=== PATIENT | female | born 1935 | race Caucasian/White ===

== ENCOUNTER 2016-10-12 16:14 | Emergency (ER) | payer MEDICARE, OTHER ==
[2016-10-12] MEDS ORDERED: HYDROcodone/ACETAMIN 5-325 MG* 1 TAB PO ONE (17:12)
[2016-10-12 17:48] VITALS: BP 156/90
--- NOTE | 2016-11-17 07:35 | UC ---
Jennifer Menendez Janilya, scribed for Ileana Krause DO on 10/12/16 at 1650 . Head Injury HPI - HPI Summary HPI Summary: A 81 y/o female came in to [facility] presenting w/ a sudden onset of head injury that occurred today at approximately 1400. Pt was walking up stairs and was carrying heavy bags of groceries when the weight pulled her backwards and caused her to fall. In effect, pt injured her head and right shoulder and right arm. Pt was not able to get up and stayed in the place where she fell for a few hours until a family member came back home. Pt was not dizzy or lightheaded when the injury occurred. Pt denies losing consciousness, BENITEZ at this moment, confusion, bright light. Pt reports increased feeling of instability now, fatigue, baseline ringing in the ears. PMHx CVA 3 years ago. - History Of Current Complaint Chief Complaint: UCHeadInjury Stated Complaint: HEAD & SHOULDER INJURIES FROM FALL Time Seen by Provider: 10/12/16 16:39 Hx Obtained From: Patient Onset/Duration: Sudden Onset, Lasting Hours, Still Present Severity Currently: Moderate Severity Initially: Moderate Pain Intensity: 6 Character: Dull Aggravating Factor(s): Nothing Alleviating Factor(s): Nothing Associated Signs And Symptoms: Negative: LOC (Time In Secs./Mins/Hrs), LOC Duration Unknown, Confusion, Neck Pain, Nausea, Vomiting - Allergies/Home Medications Allergies/Adverse Reactions: Allergies Allergy/AdvReac Type Severity Reaction Status Date / Time Colchicine Allergy Severe Rash Verified 10/12/16 16:30 Hydrochlorothiazide Allergy Intermediate Rash Verified 10/12/16 16:30 Home Medications: Home Medications Bb-12 La* 1,500 mg PO 10/12/16 [History] Benazepril HCl [Lotensin] 40 mg PO 10/12/16 [History] Colchicine* [Colcrys*] 0.6 mg PO DAILY 10/12/16 [History Confirmed 10/12/16] Escitalopram Oxalate [Lexapro] 20 mg PO 10/12/16 [History] Triamcinolone 0.5% CREAM(NF) [Triamcinolone 0.5% CREAM*] 10/12/16 [History] PMH/Surg Hx/FS Hx/Imm Hx Previously Healthy: Yes Endocrine History Of: Reports: Thyroid Disease Denies: Diabetes Cardiovascular History Of: Reports: Cardiac Disorders - Carotid artery stenosis , Hypertension Denies: Pacemaker/ICD, Congestive Heart Failure, Deep Vein Thrombosis Respiratory History Of: Denies: COPD, Asthma, Pneumonia, Pulmonary Embolism GI/ History Of: Reports: Gall Bladder Disease - Gall bladder removed Denies: Gastroesophageal Reflux, Ulcer, Gastrointestinal Bleed, Kidney Stones , Renal Disease Neurological History Of: Reports: CVA Denies: TIA, Dementia, Seizures, Migraine Psychological History Of: Reports: Depression Denies: Anxiety, Bipolar Disorder, Schizophrenia Cancer History Of: Denies: Lung Cancer Other History Of: Negative For: Anticoagulant Therapy - Surgical History Surgical History: Yes Surgery Procedure, Year, and Place: OVARIES REMOVED 1990. HYSTERECTOMY 1992. RIGHT BREAST CYST REMOVED AT AGE 17. Gall bladder removed 1990 - Family History Known Family History: Positive: Cardiac Disease - father, Hypertension - father , Other - cancer - mother - Social History Occupation: Retired Lives: With Family Alcohol Use: Daily Alcohol Amount: 1-2 drinks per day Substance Use Type: None Smoking Status (MU): Current Every Day Smoker Type: Cigarettes Amount Used/How Often: 1/2 PPD Cessation Counseling: Patient Advised to Stop - Immunization History Most Recent Influenza Vaccination: 2007 Most Recent Tetanus Shot: unk Most Recent Pneumonia Vaccination: 2011 Review of Systems Constitutional: Fatigue, Other - feeling unstable now Skin: Negative Eyes: Negative ENT: Other - baseline ringing in ears Respiratory: Negative Cardiovascular: Negative Gastrointestinal: Negative Genitourinary: Negative Motor: Negative Neurovascular: Negative Musculoskeletal: Arthralgia - right shoulder and right arm pain, Myalgia - right shoulder and right arm pain Neurological: Negative Psychological: Negative All Other Systems Reviewed And Are Negative: Yes Physical Exam Triage Information Reviewed: Yes Appearance: Well-Appearing, No Pain Distress, Well-Nourished Vital Signs: Initial Vital Signs Temp 99.9 F 10/12/16 16:25 Pulse 85 10/12/16 16:25 Resp 18 10/12/16 16:25 BP 183/104 10/12/16 16:25 Pulse Ox 99 10/12/16 16:25 Vital Signs Reviewed: Yes Eyes: Positive: Conjunctiva Clear. Negative: Discharge ENT: Positive: Hearing grossly normal. Negative: Muffled/hoarse voice Neck exam: Normal Neck: Positive: Supple Respiratory: Positive: Lungs clear, Normal breath sounds, No respiratory distress, No accessory muscle use Cardiovascular: Positive: RRR, No Murmur Musculoskeletal: Positive: Other: - Tenderness in the tip of 4th finger, the anatomical snuffbox, the radial head, and shaft of humerus. No skull depression appreciated. Neurological Exam: Normal - A&Ox3, CN II-XII INTACT, SENSORY MOTOR INTACT, REFLEXES INTACT, NO CEREBELLAR SIGNS, FACIAL SYMMETRY, NEGATIVE RHOMBERG, NEGATIVE GAIT Neurological: Positive: Alert, Muscle Tone Normal Psychological Exam: Normal Psychological: Positive: Age Appropriate Behavior Skin Exam: Normal Skin: Positive: Other - warm, dry, normal color; small abrasion on palm of right hand along with bruising. Head Injury Course/Dx - Course Course Of Treatment: Pt and her granddaughter were told that pt should not walk w/o assistance due to pain medication that will make her more unsteady on her feet. - Differential Dx/Diagnosis Differential Diagnosis/HQI/PQRI: Concussion Without LOC, Intracranial Bleed, Other Provider Diagnoses: geriatric fall/head injury, concussion, upper ext injury Discharge - Discharge Plan Condition: Stable Disposition: AGAINST MEDICAL ADVICE Referrals: Yomaira Golden [Primary Care Provider] - The documentation as recorded by the Jennifer gibson Janilya accurately reflects the service I personally performed and the decisions made by , Ileana Krause DO.
== END 2016-10-12 17:30 | disposition left against medical advice (07) ==
LOC: UCEAST 16:14
DX: S06.0X0A Concussion without loss of consciousness, initial encounter (principal); S49.91XA Unspecified injury of right shoulder and upper arm, initial encounter; W19.XXXA Unspecified fall, initial encounter; Y93.89 Activity, other specified; Y92.009 Unspecified place in unspecified non-institutional (private) residence as the place of occurrence of the external cause; Z88.8 Allergy status to other drugs, medicaments and biological substances; I65.29 Occlusion and stenosis of unspecified carotid artery; I10 Essential (primary) hypertension; Z90.49 Acquired absence of other specified parts of digestive tract; F17.210 Nicotine dependence, cigarettes, uncomplicated
CPT/HCPCS: 99213; G0463

== ENCOUNTER 2016-10-12 17:50 | Emergency (ER) | payer MEDICARE ==
[2016-10-12] MEDS ORDERED: HYDROmorphone INJ* 1 MG/ML CARPUJECT SYRINGE IV ONE (18:41)
[2016-10-12] MEDS ORDERED: NS 0.9% 1000 ML* 1,000 ML IV ONE (18:41)
[2016-10-12] MEDS ORDERED: Ondansetron INJ* 2 MG/ML VIAL IV ONE (18:41)
[2016-10-12 18:47] LABS: Hematocrit 39 % (35-47); Mean Corpuscular HGB Conc 33 g/dl (31-36); Mean Corpuscular Hemoglobin 32 pg (27-31); Mean Corpuscular Volume 96 fL (80-97); Mean Platelet Volume 8 um3 (7.4-10.4); Red Blood Count 4.07 10^6/ul (4.0-5.4); Red Cell Distribution Width 14 % (10.5-15); White Blood Count 12.7 10^3/ul (3.5-10.8)
[2016-10-12 18:58] LABS: Albumin 4.1 g/dL (3.2-5.2); BUN/Creatinine Ratio 12.6 (8-20); C Reactive Protein 1.8 mg/L (< 5.00); Calcium 9.6 mg/dL (8.6-10.3); EGFR African American 40.2 (>60); EGFR Non-African American 31.2 (>60); Globulin 2.9 g/dL (2-4); Potassium 3.4 mmol/L (3.5-5.0); Total Bilirubin 0.9 mg/dL (0.2-1.0)
--- NOTE | 2016-10-12 19:24 | RAD ---
HISTORY: Right proximal humeral pain after fall COMPARISONS: None VIEWS: 3, Frontal internal rotation and external rotation views of the right humerus FINDINGS: BONE DENSITY: Normal. BONES: There is an angulated and comminuted fracture of the humeral head, including the greater tuberosity JOINTS: There is no arthropathy. ALIGNMENT: There is no dislocation. SOFT TISSUES: Unremarkable. OTHER FINDINGS: None. IMPRESSION: ANGULATED AND COMMINUTED FRACTURE OF THE RIGHT HUMERAL HEAD
--- NOTE | 2016-10-12 19:25 | RAD ---
HISTORY: Trauma, right wrist pain COMPARISONS: None VIEWS: 3, Frontal, lateral, and oblique views of the right wrist FINDINGS: BONE DENSITY: There is diffuse osteopenia. BONES: There is no displaced fracture. JOINTS: There is no arthropathy. ALIGNMENT: There is no dislocation. SOFT TISSUES: Unremarkable. OTHER FINDINGS: None. IMPRESSION: NO ACUTE OSSEOUS INJURY. IF SYMPTOMS PERSIST, RECOMMEND REPEAT IMAGING.
[2016-10-12] MEDS ORDERED: oxyCODONE/Acetamin 5/325 MG* TAB PO ONE (21:00)
[2016-10-12 21:12] VITALS: BP 186/91
--- NOTE | 2016-10-12 23:21 | ED ---
Roxy Menendez Anna, scribed for Steve Conde MD on 10/12/16 at 1847 . Adult Trauma - HPI Summary HPI Summary: Patient is an 81 y/o female coming to [facility] after a fall that occurred at 1230 this afternoon. The patient was carrying heavy bags of groceries up the patio stairs when she slipped and fell backwards. She hit the right side of her head and landed on her right arm. She denies LOC. She was not ambulatory at the scene and was on the ground outside for two hours before she was found. She was seen at [facility] before being transferred here. Her hips are weak at baseline. She had Vicodin for the pain, which alleviated the symptoms somewhat. - History of Current Complaint Chief Complaint: EDExposureHeatCold Stated Complaint: FALL, RIGHT SHOULDER RIGHT ARM COMMING FROM [facility] Time Seen by Provider: 10/12/16 18:31 Hx Obtained From: Patient Pain Intensity: 4 - Allergy/Home Medications Allergies/Adverse Reactions: Allergies Allergy/AdvReac Type Severity Reaction Status Date / Time Colchicine Allergy Severe Rash Verified 10/12/16 16:30 Hydrochlorothiazide Allergy Intermediate Rash Verified 10/12/16 16:30 PMH/Surg Hx/FS Hx/Imm Hx Endocrine/Hematology History: Reports: Hx Thyroid Disease, Hx Anemia Denies: Hx Anticoagulant Therapy, Hx Blood Disorders, Hx Blood Transfusions, Hx Bone Marrow Disease, Hx Diabetes, Hx Systemic Lupus Erythematosus, Hx Sickle Cell Disease, Hx Unexplained Bleeding Cardiovascular History: Reports: Hx Hypercholesterolemia, Hx Hypotension, Hx Hypertension, Other Cardiovascular Problems/Disorders - carotid stenosis Denies: Hx Aneurysm, Hx Angina, Hx Angioplasty, Hx Auto Implanted Cardiovert Defib, Hx Cardiac Arrest, Hx Cardiomegaly, Hx Congenital Heart Disease, Hx Congestive Heart Failure, Hx Coronary Artery Disease, Hx Deep Vein Thrombosis, Hx Pacemaker/ICD, Hx Peripheral Vascular Disease, Hx Rheumatic Fever, Hx Syncope , Hx Valvular Heart Disease Respiratory History: Reports: Hx Seasonal Allergies Denies: Hx Asthma, Hx Chronic Bronchitis, Hx Chronic Obstructive Pulmonary Disease (COPD), Hx Cystic Fibrosis, Hx Lung Cancer, Hx Pleural Effusion, Hx Pneumonia, Hx Pulmonary Edema, Hx Pulmonary Embolism, Hx Sleep Apnea GI History: Reports: Hx Gall Bladder Disease - Gall bladder removed, Hx Gastroesophageal Reflux Disease, Hx Irritable Bowel Denies: Hx Cirrhosis, Hx Crohn's Disease, Hx Diverticulosis, Hx Gastrointestinal Bleed, Hx Hiatal Hernia, Hx Jaundice, Hx Obstructive Bowel, Hx Ileostomy, Hx Pyloric Stenosis, Hx Ulcer History: Reports: Other Problems/Disorders - Pt reports proteinuria Denies: Hx Acute Renal Failure, Hx Benign Prostatic Hyperplasia, Hx Chronic Renal Failure, Hx Dialysis, Hx Kidney Infection, Hx Kidney Stones, Hx Renal Disease Musculoskeletal History: Reports: Hx Arthritis - left hip, Hx Gout, Hx Osteoporosis Denies: Hx Back Problems, Hx Bursitis, Hx Congenital Bone Abnormalities, Hx Fibromyalgia, Hx Orthopedic Injury, Hx Scoliosis, Hx Tendonitis, Other Musculoskeletal History Sensory History: Reports: Hx Contacts or Glasses, Hx Vision Problem, Hx Hearing Problem Denies: Hx Cataracts, Hx Eye Injury, Hx Eye Prosthesis, Hx Glaucoma, Hx Macular Degeneration, Hx Deafness, Hx Hearing Aid, Other Sensory Impairments Opthamlomology History: Reports: Hx Contacts or Glasses, Hx Vision Problem Denies: Hx Cataracts, Hx Eye Injury, Hx Eye Prosthesis, Hx Glaucoma, Hx Macular Degeneration, Other Sensory Impairments Neurological History: Denies: Hx Dementia, Hx Developmental Delay, Hx Headaches, Hx Migraine, Hx Seizures, Hx Spinal Cord Injury, Hx Transient Ischemic Attacks (TIA) Psychiatric History: Reports: Hx Depression Denies: Hx Anxiety, Hx Attention Deficit Hyperactivity Disorder, Hx Eating Disorder, Hx Panic Disorder, Hx Post Traumatic Stress Disorder, Hx Inpatient Treatment, Hx Community Mental Health Tx, Hx Schizophrenia, Hx Bipolar Disorder , Hx Suicide Attempt, Hx Substance Abuse, Other Psychiatric Issues/Disorders - Surgical History Surgery Procedure, Year, and Place: OVARIES REMOVED 1990. HYSTERECTOMY 1992. RIGHT BREAST CYST REMOVED AT AGE 17. Gall bladder removed 1990 Hx Anesthesia Reactions: No Infectious Disease History: Yes Infectious Disease History: Denies: Hx Clostridium Difficile, Hx Hepatitis, Hx Human Immunodeficiency Virus (HIV), Hx Shingles, Hx Tuberculosis, Traveled Outside the [place] in Last 30 Days - Family History Known Family History: Positive: Hypertension - Social History Occupation: Retired Lives: With Family Alcohol Use: Daily Alcohol Amount: 1-2 drinks per day Substance Use Type: Reports: None Smoking Status (MU): Current Every Day Smoker Type: Cigarettes Amount Used/How Often: 1/2 PPD Review of Systems Positive: Arthralgia Positive: Weakness - hips, baseline. Negative: Syncope All Other Systems Reviewed And Are Negative: Yes Physical Exam Triage Information Reviewed: Yes Vital Signs On Initial Exam: Initial Vitals Temp Pulse Resp BP Pulse Ox 99.4 F 112 18 168/93 100 10/12/16 18:12 10/12/16 18:12 10/12/16 18:12 10/12/16 18:12 10/12/16 18:12 Vital Signs Reviewed: Yes Appearance: Positive: Well-Appearing, No Pain Distress Skin: Positive: Warm, Skin Color Reflects Adequate Perfusion, Dry, Other - Small abrasions on thenar eminence of right hand. Head/Face: Positive: Other - Very mild cephalic tenderness Eyes: Positive: Normal ENT: Positive: Normal ENT inspection Neck: Positive: Supple, Nontender Respiratory/Lung Sounds: Positive: Clear to Auscultation, Breath Sounds Present Cardiovascular: Positive: RRR Abdomen Description: Positive: Nontender, Soft Bowel Sounds: Positive: Present Musculoskeletal: Positive: Other - Ecchymosis and tenderness on humerus anteriorly. Neurological: Positive: Normal Psychiatric: Positive: Affect/Mood Appropriate Diagnostics - Vital Signs Vital Signs Temp Pulse Resp BP Pulse Ox 10/12/16 18:12 99.4 F 112 18 168/93 100 - Laboratory Lab Results: Lab Results 10/12/16 10/12/16 Range/Units 18:35 18:35 WBC 12.7 H (3.5-10.8) 10^3/ul RBC 4.07 (4.0-5.4) 10^6/ul Hgb 13.0 (12.0-16.0) g/dl Hct 39 (35-47) % MCV 96 (80-97) fL MCH 32 H (27-31) pg MCHC 33 (31-36) g/dl RDW 14 (10.5-15) % Plt Count 240 (150-450) 10^3/ul MPV 8 (7.4-10.4) um3 Neut % (Auto) 88.1 H (38-83) % Lymph % (Auto) 6.2 L (25-47) % Bennett % (Auto) 4.9 (1-9) % Eos % (Auto) 0.1 (0-6) % Baso % (Auto) 0.7 (0-2) % Absolute Neuts (auto) 11.2 H (1.5-7.7) 10^3/ul Absolute Lymphs (auto) 0.8 L (1.0-4.8) 10^3/ul Absolute Monos (auto) 0.6 (0-0.8) 10^3/ul Absolute Eos (auto) 0 (0-0.6) 10^3/ul Absolute Basos (auto) 0.1 (0-0.2) 10^3/ul Absolute Nucleated RBC 0 10^3/ul Nucleated RBC % 0 Sodium 136 (133-145) mmol/L Potassium 3.4 L (3.5-5.0) mmol/L Chloride 99 L (101-111) mmol/L Carbon Dioxide 27 (22-32) mmol/L Anion Gap 10 (2-11) mmol/L BUN 20 (6-24) mg/dL Creatinine 1.59 H (0.51-0.95) mg/dL Est GFR ( Amer) 40.2 (>60) Est GFR (Non-Af Amer) 31.2 (>60) BUN/Creatinine Ratio 12.6 (8-20) Glucose 138 H (70-100) mg/dL Calcium 9.6 (8.6-10.3) mg/dL Total Bilirubin 0.90 (0.2-1.0) mg/dL AST 16 (13-39) U/L ALT 13 (7-52) U/L Alkaline Phosphatase 73 (34-104) U/L Total Creatine Kinase 207 (10-223) U/L C-Reactive Protein 1.80 (< 5.00) mg/L Total Protein 7.0 (6.4-8.9) g/dL Albumin 4.1 (3.2-5.2) g/dL Globulin 2.9 (2-4) g/dL Albumin/Globulin Ratio 1.4 (1-3) Result Diagrams: 10/12/16 18:35 10/12/16 18:35 Lab Statement: Any lab studies that have been ordered have been reviewed, and results considered in the medical decision making process. - Radiology Wrist XR Xray Interpretation: No Acute Changes Radiology Interpretation Completed By: Radiologist - IMPRESSION: NO ACUTE OSSEOUS INJURY. IF SYMPTOMS PERSIST, RECOMMEND REPEAT IMAGING. Humerus XR Xray Interpretation: Positive (See Comments) Radiology Interpretation Completed By: Radiologist - IMPRESSION: ANGULATED AND COMMINUTED FRACTURE OF THE RIGHT HUMERAL HEAD Adult Trauma Course/Dx - Course Assessment/Plan: Patient is an 81 y/o female coming to [facility] after a fall that occurred at 1230 this afternoon. The patient was carrying heavy bags of groceries up the patio stairs when she slipped and fell backwards. She hit the right side of her head and landed on her right arm. She denies LOC. She was not ambulatory at the scene and was on the ground outside for two hours before she was found. She was seen at [facility] before being transferred here. Her hips are weak at baseline. She had Vicodin for the pain, which alleviated the symptoms somewhat. Physical exam reveals ecchymosis and tenderness on humerus anteriorly , very mild cephalic tenderness, and small abrasions on thenar eminence of right hand. Labs reveal WBC of 12.7, and Creatinine of 1.59. Wrist XR was unremarkable. Humerus XR reveals angulated and comminuted fracture of the right humeral head. Patient will be discharged home with a prescription for Percocet. - Diagnoses Provider Diagnoses: Fx humeral neck Discharge - Discharge Plan Condition: Stable Disposition: HOME Prescriptions: oxyCODONE/Acetamin 5/325 MG* [Percocet 5/325 TAB*] 1 tab PO Q6H PRN #20 tab MDD 4 PRN Reason: Pain Patient Education Materials: Oxycodone/Acetaminophen (By mouth), Arm Fracture in Adults (ED) Referrals: Jessica Boston MD [Primary Care Provider] - Additional Instructions: Follow up with primary care physician within 48 hours. Return to the emergency department for changing or worsening symptoms. The documentation as recorded by the Roxy gibson Anna accurately reflects the service I personally performed and the decisions made by , Steve Conde MD.
== END 2016-10-12 21:12 | disposition home or self-care (01) ==
LOC: ED 17:50
DX: S42.291A Other displaced fracture of upper end of right humerus, initial encounter for closed fracture (principal); W10.9XXA Fall (on) (from) unspecified stairs and steps, initial encounter; Y93.89 Activity, other specified; Y92.9 Unspecified place or not applicable; S60.511A Abrasion of right hand, initial encounter; I10 Essential (primary) hypertension; E78.00 Pure hypercholesterolemia, unspecified; F17.210 Nicotine dependence, cigarettes, uncomplicated
CPT/HCPCS: 36415; 80053; 82550; 85025; 86140; 96360; 96374; 96375; 99283; A9270-GY; J1170; J2405

== ENCOUNTER 2017-02-04 15:15 | Inpatient (IN) | payer MEDICARE ==
[2017-02-04 16:03] LABS: Hematocrit 38 % (35-47); Mean Corpuscular HGB Conc 34 g/dl (31-36); Mean Corpuscular Hemoglobin 32 pg (27-31); Mean Corpuscular Volume 94 fL (80-97); Mean Platelet Volume 8 um3 (7.4-10.4); Red Blood Count 4.07 10^6/ul (4.0-5.4); Red Cell Distribution Width 14 % (10.5-15); White Blood Count 7.5 10^3/ul (3.5-10.8)
--- NOTE | 2017-02-04 16:10 | RAD ---
HISTORY: Ataxia COMPARISONS: Head CT dated July 13, 2012 TECHNIQUE: Multiple contiguous axial CT scans were obtained of the head without intravenous contrast. FINDINGS: HEMORRHAGE/INFARCT: There is no hemorrhage or acute infarct. MASSES/SHIFT: There is no mass or shift. EXTRA-AXIAL SPACES: There are no extra-axial fluid collections. SULCI AND VENTRICLES: The sulci and ventricles are normal in size and position for the patient's stated age. CEREBRUM: There is hypoattenuation of the periventricular and subcortical white matter. BRAINSTEM: There are no focal parenchymal abnormalities. CEREBELLUM: There are no focal parenchymal abnormalities. VESSELS: The vessels are grossly normal. PARANASAL SINUSES: The paranasal sinuses are clear. ORBITS: The orbits are unremarkable. BONES AND SOFT TISSUE: No bone or soft tissue abnormalities are noted. OTHER: None IMPRESSION: NO ACUTE INTRACRANIAL PATHOLOGY. CHRONIC SMALL VESSEL ISCHEMIC CHANGES.
[2017-02-04 16:25] LABS: Troponin I 0.08 ng/mL (<0.04)
[2017-02-04 17:16] LABS: ALT 13 U/L (7-52); AST 14 U/L (13-39); Albumin 3.9 g/dL (3.2-5.2); Alkaline Phosphatase 85 U/L (34-104); Anion Gap 11 mmol/L (2-11); Blood Urea Nitrogen 28 mg/dL (6-24); CO2 Carbon Dioxide 27 mmol/L (22-32); Calcium 8.9 mg/dL (8.6-10.3); Chloride 103 mmol/L (101-111); EGFR African American 38.5 (>60); EGFR Non-African American 29.9 (>60); Globulin 2.7 g/dL (2-4); Glucose 108 mg/dL (70-100); Potassium 3.4 mmol/L (3.5-5.0); Sodium 141 mmol/L (133-145); Total Protein 6.6 g/dL (6.4-8.9)
[2017-02-04 17:27] LABS: TSH (Thyroid Stimulating Horm) 2.53 mcIU/mL (0.34-5.60)
[2017-02-04] MEDS ORDERED: Acetaminophen TAB* 325 MG PO PRN (17:29)
[2017-02-04] MEDS ORDERED: Ondansetron INJ* 2 MG/ML VIAL IV PRN (17:29)
[2017-02-04] MEDS ORDERED: Potassium Chlor TAB* 20 MEQ TAB.ER PO ONE (17:32)
[2017-02-04] MEDS ORDERED: NS 0.9% 1000 ML* 1,000 ML IV SCH (17:45)
[2017-02-04 17:53] LABS: Magnesium 1.8 mg/dL (1.9-2.7)
[2017-02-04 17:54] LABS: Alcohol < 10 mg/dL (<10)
[2017-02-04 18:19] LABS: Vitamin B12 701 pg/mL (180-914)
[2017-02-04] MEDS: Thiamine TAB* 100 MG TAB PO SCH (18:33)
[2017-02-04] MEDS: Clopidogrel TAB* 75 MG PO SCH (18:34)
--- NOTE | 2017-02-04 19:05 | ED ---
Heather Menendez SooYoung, scribed for Steve Conde MD on 02/04/17 at 1538 . Neurological HPI - HPI Summary HPI Summary: An 81 y/o F LISA presents to ED with c/o LLE weakness onset around 0930 when pt stood up from her chair, she states having been seated for only a few minutes, and noticed no weakness prior to getting up. She describes her L leg as feeling heavy, off-balance, and noticed it dragging. Associated sx: diarrhea at 1100. Denies L arm pain, slurred speech, dysuria, nausea, cough. She states feeling OK otherwise. Pert PMHx: CVA three years ago. Sx during that episode included bilat LE weakness. She is R-hand dominant. Pt is medication compliant, and takes baby aspirin daily. - History of Current Complaint Chief Complaint: EDWeakness Stated Complaint: LT LEG WEAKNESS Time Seen by Provider: 02/04/17 15:21 Hx Obtained From: Patient Onset/Duration: Sudden Onset, Started hours ago, Still Present Timing: Constant Onset Severity: Moderate Current Severity: Moderate Character: Weak Associated Signs and Symptoms: Positive: Diarrhea. Negative: Pain - armL, Impaired Speech, Nausea/Vomiting - Allergy/Home Medications Allergies/Adverse Reactions: Allergies Allergy/AdvReac Type Severity Reaction Status Date / Time Colchicine Allergy Severe Rash Verified 10/12/16 16:30 Hydrochlorothiazide Allergy Intermediate Rash Verified 10/12/16 16:30 PMH/Surg Hx/FS Hx/Imm Hx Previously Healthy: No Endocrine/Hematology History: Reports: Hx Thyroid Disease, Hx Anemia Denies: Hx Anticoagulant Therapy, Hx Blood Disorders, Hx Blood Transfusions, Hx Bone Marrow Disease, Hx Diabetes, Hx Systemic Lupus Erythematosus, Hx Sickle Cell Disease, Hx Unexplained Bleeding Cardiovascular History: Reports: Hx Hypercholesterolemia, Hx Hypotension, Hx Hypertension, Other Cardiovascular Problems/Disorders - carotid stenosis Denies: Hx Aneurysm, Hx Angina, Hx Angioplasty, Hx Auto Implanted Cardiovert Defib, Hx Cardiac Arrest, Hx Cardiomegaly, Hx Congenital Heart Disease, Hx Congestive Heart Failure, Hx Coronary Artery Disease, Hx Deep Vein Thrombosis, Hx Pacemaker/ICD, Hx Peripheral Vascular Disease, Hx Rheumatic Fever, Hx Syncope , Hx Valvular Heart Disease Respiratory History: Reports: Hx Seasonal Allergies Denies: Hx Asthma, Hx Chronic Bronchitis, Hx Chronic Obstructive Pulmonary Disease (COPD), Hx Cystic Fibrosis, Hx Lung Cancer, Hx Pleural Effusion, Hx Pneumonia, Hx Pulmonary Edema, Hx Pulmonary Embolism, Hx Sleep Apnea GI History: Reports: Hx Gall Bladder Disease - Gall bladder removed, Hx Gastroesophageal Reflux Disease, Hx Irritable Bowel Denies: Hx Cirrhosis, Hx Crohn's Disease, Hx Diverticulosis, Hx Gastrointestinal Bleed, Hx Hiatal Hernia, Hx Jaundice, Hx Obstructive Bowel, Hx Ileostomy, Hx Pyloric Stenosis, Hx Ulcer History: Reports: Other Problems/Disorders - Pt reports proteinuria Denies: Hx Acute Renal Failure, Hx Benign Prostatic Hyperplasia, Hx Chronic Renal Failure, Hx Dialysis, Hx Kidney Infection, Hx Kidney Stones, Hx Renal Disease Musculoskeletal History: Reports: Hx Arthritis - left hip, Hx Gout, Hx Osteoporosis Denies: Hx Back Problems, Hx Bursitis, Hx Congenital Bone Abnormalities, Hx Fibromyalgia, Hx Orthopedic Injury, Hx Scoliosis, Hx Tendonitis, Other Musculoskeletal History Sensory History: Reports: Hx Contacts or Glasses, Hx Vision Problem, Hx Hearing Problem Denies: Hx Cataracts, Hx Eye Injury, Hx Eye Prosthesis, Hx Glaucoma, Hx Macular Degeneration, Hx Deafness, Hx Hearing Aid, Other Sensory Impairments Opthamlomology History: Reports: Hx Contacts or Glasses, Hx Vision Problem Denies: Hx Cataracts, Hx Eye Injury, Hx Eye Prosthesis, Hx Glaucoma, Hx Macular Degeneration, Other Sensory Impairments Neurological History: Denies: Hx Dementia, Hx Developmental Delay, Hx Headaches, Hx Migraine, Hx Seizures, Hx Spinal Cord Injury, Hx Transient Ischemic Attacks (TIA) Psychiatric History: Reports: Hx Depression Denies: Hx Anxiety, Hx Attention Deficit Hyperactivity Disorder, Hx Eating Disorder, Hx Panic Disorder, Hx Post Traumatic Stress Disorder, Hx Inpatient Treatment, Hx Community Mental Health Tx, Hx Schizophrenia, Hx Bipolar Disorder , Hx Suicide Attempt, Hx Substance Abuse, Other Psychiatric Issues/Disorders - Surgical History Surgery Procedure, Year, and Place: OVARIES REMOVED 1990. HYSTERECTOMY 1992. RIGHT BREAST CYST REMOVED AT AGE 17. Gall bladder removed 1990 Hx Anesthesia Reactions: No Infectious Disease History: Denies: Hx Clostridium Difficile, Hx Hepatitis, Hx Human Immunodeficiency Virus (HIV), Hx Shingles, Hx Tuberculosis, Traveled Outside the [place] in Last 30 Days - Family History Known Family History: Positive: Hypertension - Social History Occupation: Retired Lives: With Family Alcohol Use: Daily Alcohol Amount: 1-2 drinks per day Hx Substance Use: No Substance Use Type: Reports: None Hx Tobacco Use: Yes Smoking Status (MU): Current Every Day Smoker Type: Cigarettes Amount Used/How Often: 1/2 PPD Review of Systems Negative: Cough Positive: Diarrhea. Negative: Nausea Negative: dysuria Positive: Other - NEG: L arm pain Positive: Weakness. Negative: Slurred Speech All Other Systems Reviewed And Are Negative: Yes Physical Exam Triage Information Reviewed: Yes Vital Signs On Initial Exam: Initial Vitals Pulse Pulse Ox 65 95 02/04/17 15:26 02/04/17 15:26 Vital Signs Reviewed: Yes Appearance: Positive: Well-Appearing, No Pain Distress Skin: Positive: Warm, Skin Color Reflects Adequate Perfusion, Dry Head/Face: Positive: Normal Head/Face Inspection Eyes: Positive: Normal ENT: Positive: Normal ENT inspection Neck: Positive: Supple, Nontender Respiratory/Lung Sounds: Positive: Clear to Auscultation, Breath Sounds Present Cardiovascular: Positive: RRR Abdomen Description: Positive: Nontender, Soft Bowel Sounds: Positive: Present Musculoskeletal: Positive: Normal Neurological: Positive: Rhomberg. Negative: Pronator Drift Present - NO PRONATOR DRIFT, BUT LISTS TO THE LEFT Psychiatric: Positive: Normal, Affect/Mood Appropriate Diagnostics - Vital Signs Vital Signs Pulse Pulse Ox 02/04/17 15:26 65 95 - Laboratory Lab Results: Lab Results 02/04/17 02/04/17 02/04/17 Range/Units 15:50 15:50 15:50 WBC 7.5 (3.5-10.8) 10^3/ul RBC 4.07 (4.0-5.4) 10^6/ul Hgb 13.0 (12.0-16.0) g/dl Hct 38 (35-47) % MCV 94 (80-97) fL MCH 32 H (27-31) pg MCHC 34 (31-36) g/dl RDW 14 (10.5-15) % Plt Count 230 (150-450) 10^3/ul MPV 8 (7.4-10.4) um3 Neut % (Auto) 72.8 (38-83) % Lymph % (Auto) 17.9 L (25-47) % Story % (Auto) 5.9 (1-9) % Eos % (Auto) 2.2 (0-6) % Baso % (Auto) 1.2 (0-2) % Absolute Neuts (auto) 5.4 (1.5-7.7) 10^3/ul Absolute Lymphs (auto) 1.3 (1.0-4.8) 10^3/ul Absolute Monos (auto) 0.4 (0-0.8) 10^3/ul Absolute Eos (auto) 0.2 (0-0.6) 10^3/ul Absolute Basos (auto) 0.1 (0-0.2) 10^3/ul Absolute Nucleated RBC 0 10^3/ul Nucleated RBC % 0 INR (Anticoag Therapy) 0.93 (0.89-1.11) Sodium 141 (133-145) mmol/L Potassium 3.4 L (3.5-5.0) mmol/L Chloride 103 (101-111) mmol/L Carbon Dioxide 27 (22-32) mmol/L Anion Gap 11 (2-11) mmol/L BUN 28 H (6-24) mg/dL Creatinine 1.65 H (0.51-0.95) mg/dL Est GFR ( Amer) 38.5 (>60) Est GFR (Non-Af Amer) 29.9 (>60) BUN/Creatinine Ratio 17.0 (8-20) Glucose 108 H (70-100) mg/dL Lactic Acid (0.5-2.0) mmol/L Calcium 8.9 (8.6-10.3) mg/dL Magnesium 1.8 L (1.9-2.7) mg/dL Total Bilirubin 0.50 (0.2-1.0) mg/dL AST 14 (13-39) U/L ALT 13 (7-52) U/L Alkaline Phosphatase 85 (34-104) U/L Troponin I 0.08 H* (<0.04) ng/mL Total Protein 6.6 (6.4-8.9) g/dL Albumin 3.9 (3.2-5.2) g/dL Globulin 2.7 (2-4) g/dL Albumin/Globulin Ratio 1.4 (1-3) Vitamin B12 701 (180-914) pg/mL TSH 2.53 (0.34-5.60) mcIU/mL Serum Alcohol < 10 (<10) mg/dL 02/04/17 Range/Units 15:50 WBC (3.5-10.8) 10^3/ul RBC (4.0-5.4) 10^6/ul Hgb (12.0-16.0) g/dl Hct (35-47) % MCV (80-97) fL MCH (27-31) pg MCHC (31-36) g/dl RDW (10.5-15) % Plt Count (150-450) 10^3/ul MPV (7.4-10.4) um3 Neut % (Auto) (38-83) % Lymph % (Auto) (25-47) % Story % (Auto) (1-9) % Eos % (Auto) (0-6) % Baso % (Auto) (0-2) % Absolute Neuts (auto) (1.5-7.7) 10^3/ul Absolute Lymphs (auto) (1.0-4.8) 10^3/ul Absolute Monos (auto) (0-0.8) 10^3/ul Absolute Eos (auto) (0-0.6) 10^3/ul Absolute Basos (auto) (0-0.2) 10^3/ul Absolute Nucleated RBC 10^3/ul Nucleated RBC % INR (Anticoag Therapy) (0.89-1.11) Sodium (133-145) mmol/L Potassium (3.5-5.0) mmol/L Chloride (101-111) mmol/L Carbon Dioxide (22-32) mmol/L Anion Gap (2-11) mmol/L BUN (6-24) mg/dL Creatinine (0.51-0.95) mg/dL Est GFR ( Amer) (>60) Est GFR (Non-Af Amer) (>60) BUN/Creatinine Ratio (8-20) Glucose (70-100) mg/dL Lactic Acid 1.2 (0.5-2.0) mmol/L Calcium (8.6-10.3) mg/dL Magnesium (1.9-2.7) mg/dL Total Bilirubin (0.2-1.0) mg/dL AST (13-39) U/L ALT (7-52) U/L Alkaline Phosphatase (34-104) U/L Troponin I (<0.04) ng/mL Total Protein (6.4-8.9) g/dL Albumin (3.2-5.2) g/dL Globulin (2-4) g/dL Albumin/Globulin Ratio (1-3) Vitamin B12 (180-914) pg/mL TSH (0.34-5.60) mcIU/mL Serum Alcohol (<10) mg/dL Result Diagrams: 02/04/17 15:50 02/04/17 15:50 Lab Statement: Any lab studies that have been ordered have been reviewed, and results considered in the medical decision making process. - CT BRAIN CT CT Interpretation: No Acute Changes - IMPRESSION: No acute intracranial pathology. Chronic small vessel ischemic changes. CT Interpretation Completed By: Radiologist - EKG 1 Cardiac Rate: NL EKG Rhythm: Sinus Rhythm Course/Dx - Course Course Of Treatment: Ms. Garcia presented with a C/O ataxia which started at 0930 this AM. Her exam revealed a list to the left and positive romberg and a negative CT. She will be admitted to the hospitalist for a posterior CVA W/U. - Diagnoses Provider Diagnoses: CVA (cerebral vascular accident) - Physician Notifications Discussed Care Of Patient With: Giuliano Maldondao - neuro Time Discussed With Above Provider: 16:30 - recommends admission Instructed by Provider To: Admit As Inpatient - Critical Care Time Critical Care Time: 30-74 min Discharge - Discharge Plan Condition: Stable Disposition: ADMITTED TO [facility] Consultation - Reason for Consultation Reason for Consultation: 1640: Consult with Dr. Noriega, hospitalist Will admit pt. The documentation as recorded by the Heather gibson SooYoung accurately reflects the service I personally performed and the decisions made by , Steve Conde MD.
--- NOTE | 2017-02-04 19:56 | HP ---
CC: Dr. Nunez; Dr. Maldonado * HISTORY AND PHYSICAL: DATE OF ADMISSION: 02/04/17 PRIMARY CARE PROVIDER: Dr. Nunez. ATTENDING PHYSICIAN WHILE IN THE HOSPITAL: Dr. Abe Noriega* (report dictated by Chaparro Khalil NP). CONSULTING NEUROLOGIST: Dr. Maldonado. CHIEF COMPLAINT: 1. Difficulty walking. 2. Left leg heaviness. HISTORY OF PRESENT ILLNESS: Mrs. Garcia is an 81-year-old female patient. She has a history of stroke in the past, history of hypothyroidism, depression, hyperlipidemia, hypertension, anemia, and gout, and is still smoking. She comes in today around 9:30. She had sudden onset of what she says her left leg felt heavy. She specifically denied having any discomfort or trouble with her left arm or left facial droop or trouble with speech. She is right-handed. She says she has not had any trouble with her vision either, but she noticed that the left leg was certainly weaker, felt heavy. She says that the legs felt clumsy to her. She was noticed to be kind of falling to her left. She in fact, at home, did have an episode where she fell when she was trying to put her shoes on. She called her daughter because she was concerned that something was going on and her daughter said that maybe she should go to the ER and be checked out. So, the daughter drove her here. There was concern for possible stroke given her focal symptoms. There has been no reports of change in medications. She denied having any chest pain or any shortness of breath. There has been no chest pain. No reports of shortness of breath. No recent fevers or chills. She came into the ER, was evaluated. It looked like she had some left lower leg weakness and there was concern for possible stroke. Hospitalist service was asked to evaluate for admission. PAST MEDICAL HISTORY: Significant for: 1. CVA. 2. Hypothyroidism. 3. Depression. 4. Hyperlipidemia. 5. Hypertension. 6. Anemia. 7. Gout. PAST SURGICAL HISTORY: 1. The patient has had an ovarian cystectomy. 2. Laparoscopic cholecystectomy. 3. Hysterectomy. HOME MEDICATIONS: According to the list that we were able to obtain include: 1. Amlodipine 5 mg daily. 2. Triamcinolone cream 1 application topically b.i.d. as needed. 3. Toprol-XL 25 mg daily. 4. Synthroid 100 mcg daily. 5. Lasix 20 mg daily. 6. Folic acid 1 mg p.o. daily. 7. Lexapro 20 mg p.o. daily. 8. Colchicine 0.6 mg p.o. daily as needed. 9. Vitamin D3 5000 units p.o. daily. 10. Benazepril 40 mg daily. 11. B12 LA 1500 mcg p.o. daily. 12. Lipitor 20 mg daily. 13. Aspirin 320 mg daily. ALLERGIES TO MEDICATIONS: Include COLCHICINE and HYDROCHLOROTHIAZIDE. FAMILY HISTORY: The mother had a history of ovarian cancer. The father had a history of AR. SOCIAL HISTORY: She is a current smoker. She does drink vodka on a daily basis. Her surrogate decision maker is her daughter. REVIEW OF SYSTEMS: There is no documented fever. Denied having any significant weight change. There was no double vision. There was no ear discharge. She denied having any rhinorrhea. No sore throat. No thyroid enlargement. Denied having any chest pain. There was no orthopnea. No nocturnal dyspnea. There is no abdominal pain. No nausea. No vomiting. No dysuria. No frequency. There was no seizure. No loss of consciousness. No pruritus and no skin ulcerations. Review of 14 systems completed, all others negative. PHYSICAL EXAMINATION GENERAL: At this time, Mrs. Garcia is an 81-year-old female patient. She is sitting on the ER stretcher. She does not appear to be in any acute distress. She is awake and she is alert. VITAL SIGNS: Blood pressure 147/58, with a pulse of 63, respirations 17, O2 sat 95%, and temperature 97.7. HEENT: Head is atraumatic and normocephalic. Eyes: EOMs are intact. Sclerae are anicteric, not pale. Throat: Oral mucosa appears to be moist. No oropharyngeal erythema. NECK: Supple. LUNGS: Clear to auscultation bilaterally. No wheezes, rales or rhonchi. HEART: Sounds S1, S2. Regular rate and rhythm. No murmurs, rubs or gallops. ABDOMEN: Soft, flat, and nontender. Bowel sounds are present. EXTREMITIES: Pulses were 2+ throughout. She is able to move her extremities. She had about 4/5 strength in the left lower extremity. She had no peripheral edema. She had 5/5 strength in the upper extremities and 5/5 strength in the right lower extremity. NEUROLOGIC: She is awake, she is alert. Speech is clear. Tongue is midline. She had no facial drooping. Cranial nerves were intact. She did have some ataxia to the left lower limb compared to the right. I did not see any upper limb ataxia with [id number]. Otherwise, no gross focal deficits. SKIN: Grossly intact. DIAGNOSTIC STUDIES/LAB DATA: Her labs today revealed a WBC of 7.5, RBC of 4.07 , hemoglobin 13.0, hematocrit of 38, platelet count of 230. INR 0.93. Sodium of 141, potassium 3.4, chloride 103, bicarb 27, BUN 28, creatinine of 1.65. Her glucose was 108, lactic 1.2, calcium 8.9. Total bili 0.5, AST 14, ALT 13, alk phos 85. Troponin 0.08. Albumin of 3.9. TSH of 2.53. She did have an EKG today which showed a normal sinus rhythm, no ST elevations or T- wave inversions. She had flattened T waves in V5 and V6, but no inversions were noted. She did have a brain CT obtained today which revealed no acute intracranial pathology, chronic small vessel ischemic change. Old medical records were reviewed. ASSESSMENT AND PLAN: Mrs. Garcia is an 81-year-old female patient coming into the ER today with complaints of not feeling well, having difficulty moving her left leg, feeling heavy. She fell and she came into the ER with concern for cerebrovascular accident. She will be admitted under inpatient status for: 1. Cerebrovascular accident: I will concerned that she may have a posterior stroke here, maybe a cerebellar stroke. My plan is to go ahead and get an MRI of the brain with MRA of the head and neck without contrast because of her GFR. I will get an echo with a bubble study. We will start her on Plavix. She takes aspirin already. I will get a lipid panel in the morning. I also will check an A1c in the morning. I will check neuro checks every [address] Maldonado evaluate. We will place her on telemetry to monitor for any atrial fibrillation. 2. History of hypothyroidism: We will continue her medications as prescribed. 3. Depression: Continue with supportive care and continue medications as prescribed. 4. History of ETOH use: She says she drinks daily and has vodka. I am just going to start her on thiamine and check a B12 as she has had deficiency in the past. I do not think she needs a WAM protocol. She says she only drinks about a shot of it a day and we will just monitor her. 5. Hyperlipidemia: Continue statin therapy. 6. Hypertension in the setting of acute cerebrovascular accident, we will allow for permissive hypertension and follow. 7. Anemia: H and H are stable. 8. Gout: We will hold her colchicine for the time being and just monitor. 9. DVT prophylaxis: She is high risk. She will be placed on heparin subcu. 10. Code status: She wishes to be a full code. 11. Fluids, electrolytes, and nutrition: She can have a heart healthy diet pending bedside swallow evaluation. TIME SPENT: Time spent on the admission was approximately 60 minutes; greater than half that time was spent [id number] with the patient, obtaining my history and physical, the other half of the time was spent going over the plan of care with the patient and implementing plan of care. I discussed the plan of care with my attending, Dr. Noriega, who is in agreement. CHAPARRO KHALIL, ALBERT [id number]/[facility] #: [id number] CEFERINO
[2017-02-04 20:14] LABS: Urine Bacteria 3+ (Absent); Urine Bilirubin Negative (Negative); Urine Glucose Negative (Negative); Urine Nitrite Positive (Negative)
--- NOTE | 2017-02-04 21:03 | RAD ---
HISTORY: Stroke, right leg weakness COMPARISONS: MRI of the brain dated February 04, 2017 TECHNIQUE: The following sequences were obtained of the neck after localizing images: Stacked axial 2-D [id number] MR angiography of the neck; 3-D axial [id number] MR angiography of the carotid bifurcations. Multiple 3-D maximum intensity projection reconstructions are submitted for review. FINDINGS: AORTA: The aortic arch is not well visualized secondary to technique and motion artifact. There is no obvious ostial or proximal stenosis of the cephalic great vessels. RIGHT VERTEBRAL ARTERY: The right vertebral artery is patent and without stenosis. There is in plane flow saturation artifact of the horizontal portion of the right vertebral artery. LEFT VERTEBRAL ARTERY: The left vertebral artery is patent, without stenosis. There is in plane flow saturation artifact of the horizontal portion of the left vertebral artery. DOMINANCE: The left vertebral artery is dominant. RIGHT COMMON CAROTID ARTERY: The right common carotid artery is patent. RIGHT INTERNAL CAROTID ARTERY: There is no right internal carotid artery stenosis by NASCET criteria. LEFT COMMON CAROTID ARTERY: The left common carotid artery is patent. LEFT INTERNAL CAROTID ARTERY: There is no left internal carotid artery stenosis by NASCET criteria. ADDITIONAL FINDINGS: The visualized intracranial circulation is unremarkable. IMPRESSION: NO INTERNAL CAROTID ARTERY STENOSIS BY NASCET CRITERIA CPT II Codes: 3100F
--- NOTE | 2017-02-04 21:04 | RAD ---
HISTORY: Ataxia right leg weakness, stroke COMPARISONS: None TECHNIQUE: 3-D axial [id number] MR angiography was performed of the head to include the [place]. Multiple 3-D maximum intensity projection reconstructions are also submitted for review. FINDINGS: RIGHT VERTEBRAL ARTERY: The distal right vertebral artery is unremarkable, without stenosis. LEFT VERTEBRAL ARTERY: The distal left vertebral artery is unremarkable, without stenosis. DOMINANCE: The left vertebral artery is dominant. DISTAL RIGHT CERVICAL INTERNAL CAROTID ARTERY: The distal right cervical internal carotid artery is unremarkable. DISTAL LEFT CERVICAL INTERNAL CAROTID ARTERY: The distal left cervical internal carotid artery is unremarkable. INTRACRANIAL CIRCULATION: There is no aneurysm, vascular malformation, occlusion, or stenosis of the visualized intracranial circulation. The anterior communicating artery complex is clear. The right posterior communicating artery is diminutive if present. OTHER FINDINGS: None IMPRESSION: NO ANEURYSM, VASCULAR MALFORMATION, OCCLUSION, OR STENOSIS OF THE VISUALIZED INTRACRANIAL CIRCULATION.
--- NOTE | 2017-02-04 21:08 | RAD ---
HISTORY: Right leg weakness, stroke COMPARISONS: Head CT dated February 04, 2017 TECHNIQUE: The following sequences were obtained of the head: Sagittal T1-weighted images, axial T2-weighted images, axial FLAIR images, axial susceptibility weighted images, axial T1-weighted images. Additionally, axial diffusion-weighted images were obtained with calculated apparent diffusion coefficients. FINDINGS: HEMORRHAGE/INFARCT: There is no hemorrhage or acute infarct. MASSES/SHIFT: There is no mass or shift. EXTRA-AXIAL SPACES/MENINGES: There are no extra-axial fluid collections. SULCI AND VENTRICLES: The sulci and ventricles are normal in size and position for the patient's stated age. CEREBRUM: There is diffuse multifocal and confluent elevated T2/FLAIR signal in the periventricular and subcortical white matter. There are small chronic appearing lacunar infarcts. BRAINSTEM: There are no focal parenchymal abnormalities. CEREBELLUM: There are no focal parenchymal abnormalities. The cerebellar tonsils are normal in size and position. SELLA: The sella is normal. PINEAL: The pineal region is clear. CP ANGLE/TEMPORAL BONES: The labyrinthine structures are grossly normal. VESSELS: Normal flow-voids are noted within the visualized vertebral vasculature. DIFFUSION ABNORMALITIES: There are no diffusion abnormalities. PARANASAL SINUSES/MASTOIDS: The paranasal sinuses are clear. ORBITS: The orbits are unremarkable. BONES AND SOFT TISSUE: No bone or soft tissue abnormalities are noted. OTHER: None IMPRESSION: 1. ELEVATED T2/FLAIR SIGNAL IN THE PERIVENTRICULAR AND SUBCORTICAL WHITE MATTER, NONSPECIFIC, BUT MOST SUGGESTIVE OF CHRONIC SMALL VESSEL ISCHEMIC CHANGES. 2. NO RESTRICTED DIFFUSION TO SUGGEST ACUTE INFARCT
[2017-02-04] MEDS: Heparin VIAL(*) 5000 UNITS/ML VIAL (FIVE THOUSAND) SUBCUT SCH (22:02)
[2017-02-05 05:25] LABS: Hematocrit 35 % (35-47); Hemoglobin 11.8 g/dl (12.0-16.0); Mean Corpuscular HGB Conc 33 g/dl (31-36); Mean Corpuscular Hemoglobin 32 pg (27-31); Mean Corpuscular Volume 95 fL (80-97); Mean Platelet Volume 8 um3 (7.4-10.4); Red Blood Count 3.73 10^6/ul (4.0-5.4); Red Cell Distribution Width 14 % (10.5-15); White Blood Count 6.1 10^3/ul (3.5-10.8)
[2017-02-05] MEDS: Heparin VIAL(*) 5000 UNITS/ML VIAL (FIVE THOUSAND) SUBCUT SCH ×2 (05:31→14:00)
[2017-02-05 05:48] LABS: BUN/Creatinine Ratio 20.5 (8-20); Calcium 8.4 mg/dL (8.6-10.3); EGFR African American 52.1 (>60); EGFR Non-African American 40.5 (>60); HDL Cholesterol 36.6 mg/dL; Potassium 3.3 mmol/L (3.5-5.0)
[2017-02-05] MEDS ORDERED: Levothyroxine TAB* 100 MCG TAB PO SCH (06:00)
[2017-02-05] MEDS ORDERED: cefTRIAXone VIAL(*) 1,000 MG in NS 0.9% 50 ML* 50 ML IVPB SCH (08:00)
[2017-02-05] MEDS ORDERED: CMCS Escitalopram (NF) 10 MG TAB PO SCH (09:00)
[2017-02-05] MEDS ORDERED: Atorvastatin* 20 MG TAB PO SCH (09:00)
[2017-02-05] MEDS ORDERED: Folic Acid TAB* 1 MG PO SCH (09:00)
[2017-02-05] MEDS: Clopidogrel TAB* 75 MG PO SCH (09:15)
[2017-02-05] MEDS: Thiamine TAB* 100 MG TAB PO SCH (09:15)
--- NOTE | 2017-02-05 13:01 | ECHO ---
Patient: OUSMANE GREGORY [facility] Rec#: [id number] : 1935 Date: 02/05/2017 Age: 81y Height: 165.1 cm / 65.0 in Weight: 77.11 kg / 170.0 lbs Sex: F BSA: 1.85 Room#: 446 Admit Date#: 02/04/2017 Type: Inpatient Referring: Chaparro Khalil NP Reading: Jessica Bar MD [place]: Cinthia FerrerRDCS,RDMS Transthoracic Echocardiogram Indication: CVA BP: 144/72 HR: 63 Rhythm: NSR Findings History: CVA, HLD, HTN, smoker, Technical Comments: The study quality is good. Completed 1110 Left Ventricle: The left ventricular chamber size is decreased. Mild to moderate concentric left ventricular hypertrophy is observed. Global left ventricular wall motion and contractility are within normal limits. The estimated ejection fraction is 60-65%. Abnormal left ventricular diastolic filling is observed, consistent with impaired relaxation. Left Atrium: The left atrial chamber size is normal. Right Ventricle: The right ventricular chamber size and systolic function are within normal limits. The right ventricle wall thickness is mildly increased. Right Atrium: The right atrial cavity size is normal. A patent foramen ovale is not demonstrated with color Doppler and agitated contrast. Aortic Valve: The aortic valve is trileaflet. The aortic valve leaflets are mildly thickened. There is a trace of aortic regurgitation. There is no evidence of aortic stenosis. Mitral Valve: The mitral valve leaflets appear normal. There is a trace of mitral regurgitation. There is no evidence of mitral stenosis. Tricuspid Valve: The tricuspid valve leaflets are normal. There is trace tricuspid regurgitation. No pulmonary hypertension is noted. Pulmonic Valve: The pulmonic valve structure is not well visualized. There is a trace pulmonic regurgitation. Pericardium: There is no significant pericardial effusion. Aorta: The ascending aorta is not well visualized. There is no dilatation of the aortic arch. There is no dilation of the aortic root. Pulmonary Artery: The main pulmonary artery is not well visualized. Venous: The inferior vena cava is dilated. There is a greater than 50% respiratory change in the inferior vena cava dimension. Contrast: Intravenous agitated saline contrast was used to assess intracardiac shunting. Images 1 2 Conclusions Mild to moderate concentric left ventricular hypertrophy and small LV chamber diameter. Global left ventricular wall motion and contractility are within normal limits. The estimated ejection fraction is 60-65%. Abnormal left ventricular diastolic filling is observed, consistent with impaired relaxation. The right ventricle wall thickness is mildly increased and systolic function is normal. No patent foramen ovale demonstrated with color Doppler and agitated contrast. There is a trace of aortic regurgitation. There is a trace of mitral regurgitation. There is trace tricuspid regurgitation. Compared with prior echo of 07/14/12, global LVH and small chamber diameter are new, venticular and valvular function are stable. Measurements Name Value Normal Range RVIDd (AP) 2D 3.1 cm (0.9 - 2.6) RVDdMajor (2D) 3.1 cm (2.2 - 4.4) RAd ISD 4CH 4.9 cm (3.4 - 4.9) RA (A4C)W 4.2 cm (2.9 - 4.6) IVSd (2D) 1.3 cm (0.6 - 1) LVPWd (2D) 1.3 cm (0.6 - 1) LVIDd (2D) 3.4 cm (3.6 - 5.4) LVIDs (2D) 1.6 cm - LV FS (2D) 52 % (25 - 45) Aortic Annulus 1.8 cm (1.4 - 2.6) Ao root diameter (2D) 2.7 cm (2.1 - 3.5) Aortic arch 2.3 cm (1.8 - 3.4) LA dimension (AP) 2D 4.2 cm (2.3 - 3.8) LAd ISD 4CH 5.1 cm (2.9 - 5.3) LA ISD 4CH W 4.1 cm (2.5 - 4.5) Name Value Normal Range LA ESV SP 4CH (A/L) 33.72 ml - LA ESV SP 2CH (A/L) 51.08 ml - LA ESV BP (A/L) 42.19 ml - LA ESV BP (A/L) index 22.8 ml/m2 - LA ESV SP 4CH (MOD) 32.14 ml - LA ESV SP 2CH (MOD) 46.66 ml - Name Value Normal Range MV E-wave Vmax 0.6 m/sec - MV deceleration time 312 msec - MV A-wave Vmax 0.9 m/sec - MV E:A ratio 0.7 ratio - P. vein S-wave Vmax 0.7 m/sec - P. vein D-wave Vmax 0.3 m/sec - P. vein S:D Vmax ratio 2.6 ratio - P. vein A-wave duration 88 msec - LV septal e' Vmax 0.05 m/sec - LV lateral e' Vmax 0.07 m/sec - LV E:e' septal ratio 12 ratio - LV E:e' lateral ratio 9 ratio - Name Value Normal Range AV Vmax 1.7 m/sec - AV VTI 34.2 cm - AV peak gradient 11.6 mmHg - AV mean gradient 5.8 mmHg - LVOT Vmax 1.1 m/sec - LVOT VTI 27.1 cm - LVOT peak gradient 5 mmHg - LVOT mean gradient 2.8 mmHg - SULLY Vmax 0.5 m/sec - Name Value Normal Range TR Vmax 2.5 m/sec - TR peak gradient 25 mmHg - RAP 3 mmHg - RVSP 28 mmHg - IVC diameter 2.2 cm - Name Value Normal Range PV Vmax 0.8 m/sec - PV peak gradient 2.6 mmHg -
[2017-02-05] MEDS ORDERED: Potassium Chlor TAB* 20 MEQ TAB.ER PO ONE (15:10)
[2017-02-05] MEDS ORDERED: Atorvastatin* 80 MG TAB PO SCH (15:27)
--- NOTE | 2017-02-05 15:29 | PN ---
Subjective Date of Service: 02/05/17 Interval History: Patient seen and examined at bedside. Ms. Garcia denies any acute complaint, including difficulty with speech, focal weakness, CP, SOB, abd pain, n/v. She reports her leg weakness has resolved. We discussed her symptoms and cardiovascular risks as well as smoking. Patient verbalized understanding but has low motivation to quit smoking at this time. Telemetry: SR 60s Family History: Unchanged from Admission Social History: Unchanged from Admission Past Medical History: Unchanged from Admission Objective Active Medications: Acetaminophen (Tylenol Tab*) 650 mg PO Q4H PRN PRN Reason: FEVER/PAIN Atorvastatin Calcium (Lipitor*) 20 mg PO DAILY [facility] Last Admin: 02/05/17 09:15 Dose: 20 mg Clopidogrel Bisulfate (Plavix Tab*) 75 mg PO DAILY [facility] Last Admin: 02/05/17 09:15 Dose: 75 mg Escitalopram Oxalate (Lexapro (Nf)) 20 mg PO DAILY [facility] Last Admin: 02/05/17 09:15 Dose: 20 mg Folic Acid (Folvite Tab*) 1 mg PO DAILY [facility] Last Admin: 02/05/17 09:15 Dose: 1 mg Heparin Sodium (Porcine) (Heparin Vial(*)) 5,000 units SUBCUT Q8HR [facility] Last Admin: 02/05/17 14:00 Dose: 5,000 units Sodium Chloride (Ns 0.9% 1000 Ml*) 1,000 mls @ 75 mls/hr IV PER RATE [facility] Last Admin: 02/04/17 18:36 Dose: 75 mls/hr Ceftriaxone Sodium 1,000 mg/ (Sodium Chloride) 50 mls @ 200 mls/hr IVPB Q24H [facility] Last Admin: 02/05/17 09:20 Dose: 200 mls/hr Levothyroxine Sodium (Synthroid Tab*) 100 mcg PO 0600 [facility] Last Admin: 02/05/17 05:32 Dose: 100 mcg Ondansetron HCl (Zofran Inj*) 4 mg IV Q6H PRN PRN Reason: NAUSEA Potassium Chloride (Klor Con Er Tab*) 40 meq PO ONCE ONE Stop: 02/05/17 15:11 Thiamine HCl (Vitamin B-1 Tab*) 100 mg PO DAILY [facility] Last Admin: 02/05/17 09:15 Dose: 100 mg Vital Signs 02/04/17 02/04/17 02/04/17 17:30 17:36 17:43 Temperature Pulse Rate 64 66 65 Respiratory 17 16 16 Rate Blood Pressure 147/58 (mmHg) O2 Sat by Pulse 95 95 94 Oximetry 02/04/17 02/04/17 02/04/17 18:00 18:05 18:20 Temperature 98.2 F 98.4 F Pulse Rate 59 92 70 Respiratory 18 16 18 Rate Blood Pressure 149/73 149/73 147/71 (mmHg) O2 Sat by Pulse 94 96 Oximetry 02/04/17 02/04/17 02/04/17 19:46 20:00 22:06 Temperature 98.4 F Pulse Rate 60 Respiratory 16 16 Rate Blood Pressure 143/66 (mmHg) O2 Sat by Pulse 95 97 Oximetry 02/04/17 02/05/17 02/05/17 23:52 04:03 07:40 Temperature 98.9 F 99.2 F Pulse Rate 58 71 Respiratory 16 16 18 Rate Blood Pressure 126/58 144/72 (mmHg) O2 Sat by Pulse 94 95 Oximetry 02/05/17 02/05/17 08:13 11:13 Temperature 98.1 F 97.6 F Pulse Rate 58 62 Respiratory 16 16 Rate Blood Pressure 146/63 148/74 (mmHg) O2 Sat by Pulse 92 94 Oximetry Oxygen Devices in Use Now: None Appearance: Elderly female, OOB to chair, NAD Eyes: PERRLA Ears/Nose/Mouth/Throat: Mucous Membranes Moist Neck: NL Appearance and Movements; NL JVP Respiratory: Symmetrical Chest Expansion and Respiratory Effort, Clear to Auscultation Cardiovascular: NL Sounds; No Murmurs; No JVD, RRR Abdominal: NL Sounds; No Tenderness; No Distention Extremities: No Edema Neurological: Alert and Oriented x 3, NL Muscle Strength and Tone, - - Negative pronator drift, photovoltaic installer equal bilaterally, strength 5/5 throughout, CN II-XII grossly intact Lines/Tubes/Other Access: Clean, Dry and Intact Peripheral IV Nutrition: Taking PO's Result Diagrams: 02/05/17 05:11 02/05/17 05:12 Additional Lab and Data: Lab Results 02/04/17 02/04/17 02/04/17 Range/Units 15:50 15:50 15:50 WBC 7.5 (3.5-10.8) 10^3/ul RBC 4.07 (4.0-5.4) 10^6/ul Hgb 13.0 (12.0-16.0) g/dl Hct 38 (35-47) % MCV 94 (80-97) fL MCH 32 H (27-31) pg MCHC 34 (31-36) g/dl RDW 14 (10.5-15) % Plt Count 230 (150-450) 10^3/ul MPV 8 (7.4-10.4) um3 Neut % (Auto) 72.8 (38-83) % Lymph % (Auto) 17.9 L (25-47) % Fountain % (Auto) 5.9 (1-9) % Eos % (Auto) 2.2 (0-6) % Baso % (Auto) 1.2 (0-2) % Absolute Neuts (auto) 5.4 (1.5-7.7) 10^3/ul Absolute Lymphs (auto) 1.3 (1.0-4.8) 10^3/ul Absolute Monos (auto) 0.4 (0-0.8) 10^3/ul Absolute Eos (auto) 0.2 (0-0.6) 10^3/ul Absolute Basos (auto) 0.1 (0-0.2) 10^3/ul Absolute Nucleated RBC 0 10^3/ul Nucleated RBC % 0 INR (Anticoag Therapy) 0.93 (0.89-1.11) Sodium 141 (133-145) mmol/L Potassium 3.4 L (3.5-5.0) mmol/L Chloride 103 (101-111) mmol/L Carbon Dioxide 27 (22-32) mmol/L Anion Gap 11 (2-11) mmol/L BUN 28 H (6-24) mg/dL Creatinine 1.65 H (0.51-0.95) mg/dL Est GFR ( Amer) 38.5 (>60) Est GFR (Non-Af Amer) 29.9 (>60) BUN/Creatinine Ratio 17.0 (8-20) Glucose 108 H (70-100) mg/dL Lactic Acid (0.5-2.0) mmol/L Calcium 8.9 (8.6-10.3) mg/dL Magnesium 1.8 L (1.9-2.7) mg/dL Total Bilirubin 0.50 (0.2-1.0) mg/dL AST 14 (13-39) U/L ALT 13 (7-52) U/L Alkaline Phosphatase 85 (34-104) U/L Troponin I 0.08 H* (<0.04) ng/mL Total Protein 6.6 (6.4-8.9) g/dL Albumin 3.9 (3.2-5.2) g/dL Globulin 2.7 (2-4) g/dL Albumin/Globulin Ratio 1.4 (1-3) Vitamin B12 701 (180-914) pg/mL TSH 2.53 (0.34-5.60) mcIU/mL Serum Alcohol < 10 (<10) mg/dL 02/04/17 Range/Units 15:50 WBC (3.5-10.8) 10^3/ul RBC (4.0-5.4) 10^6/ul Hgb (12.0-16.0) g/dl Hct (35-47) % MCV (80-97) fL MCH (27-31) pg MCHC (31-36) g/dl RDW (10.5-15) % Plt Count (150-450) 10^3/ul MPV (7.4-10.4) um3 Neut % (Auto) (38-83) % Lymph % (Auto) (25-47) % Fountain % (Auto) (1-9) % Eos % (Auto) (0-6) % Baso % (Auto) (0-2) % Absolute Neuts (auto) (1.5-7.7) 10^3/ul Absolute Lymphs (auto) (1.0-4.8) 10^3/ul Absolute Monos (auto) (0-0.8) 10^3/ul Absolute Eos (auto) (0-0.6) 10^3/ul Absolute Basos (auto) (0-0.2) 10^3/ul Absolute Nucleated RBC 10^3/ul Nucleated RBC % INR (Anticoag Therapy) (0.89-1.11) Sodium (133-145) mmol/L Potassium (3.5-5.0) mmol/L Chloride (101-111) mmol/L Carbon Dioxide (22-32) mmol/L Anion Gap (2-11) mmol/L BUN (6-24) mg/dL Creatinine (0.51-0.95) mg/dL Est GFR ( Amer) (>60) Est GFR (Non-Af Amer) (>60) BUN/Creatinine Ratio (8-20) Glucose (70-100) mg/dL Lactic Acid 1.2 (0.5-2.0) mmol/L Calcium (8.6-10.3) mg/dL Magnesium (1.9-2.7) mg/dL Total Bilirubin (0.2-1.0) mg/dL AST (13-39) U/L ALT (7-52) U/L Alkaline Phosphatase (34-104) U/L Troponin I (<0.04) ng/mL Total Protein (6.4-8.9) g/dL Albumin (3.2-5.2) g/dL Globulin (2-4) g/dL Albumin/Globulin Ratio (1-3) Vitamin B12 (180-914) pg/mL TSH (0.34-5.60) mcIU/mL Serum Alcohol (<10) mg/dL Microbiology and Other Data: Microbiology 02/04/17 20:00 Urine Culture - Preliminary Urine Escherichia Coli Assess/Plan/Problems-Billing Assessment: Ms. Garcia is an 81 yo female with a PMH of CVA, hypothyroidism, depression, HLD , HTN, gout, and tobacco abuse who presented to the ED on 02/04/17 with concern for difficulty walking and left leg heaviness that appears to be secondary to TIA. - Patient Problems (1) TIA (transient ischemic attack) Comment: With gait disturbance and left leg heaviness, now resolved Suspect TIA Appreciate neurology input Negative bubble study on echo Patient with multiple CV risk factors: elevated A1c, elevated lipids, HTN, tobacco use Patient referred to [facility] for HgbA1c 6.3 Atorvastatin increased Continue ASA and clopidogrel Patient advised to quit smoking (2) UTI (urinary tract infection) Comment: Urine cx growing E.coli Treated with ceftriaxone Continue cefuroxime upon discharge Follow-up with PCP (3) History of hypertension Code(s): Z86.79 - PERSONAL HISTORY OF OTHER DISEASES OF THE CIRCULATORY SYSTEM Comment: Continue benazepril, amlodipine, furosemide. (4) History of depression Code(s): Z86.59 - PERSONAL HISTORY OF OTHER MENTAL AND BEHAVIORAL DISORDERS Comment: Continue escitalopram. (5) History of hypothyroidism Code(s): Z86.39 - PERSONAL HISTORY OF ENDO, NUTRITIONAL AND METABOLIC DISEASE Comment: Continue levothyroxine (6) HLD (hyperlipidemia) Code(s): E78.5 - HYPERLIPIDEMIA, UNSPECIFIED Comment: Increase atorvastatin to 80 mg in presence of TIA and elevated lipids and cholesterol. (7) Hx of gout Code(s): Z87.39 - PERSONAL HISTORY OF DISEASES OF THE MS SYS AND CONN TISS Comment: Continue colchicine prn. (8) Tobacco abuse Code(s): Z72.0 - TOBACCO USE Comment: I have advised the patient to quit. 20 minutes spent in counseling. Patient understands risks of continued use and benefits of cessation. She has asked for nicotine patches, which have been prescribed. Patient advised not to smoke with patches on. (9) DVT prophylaxis Comment: SQ heparin Status and Disposition: OBV admit. D/c to home. Patient's daughter to stay with her for further monitoring over the next few days.
[2017-02-05 16:09] VITALS: BP 148/75
--- NOTE | 2017-02-05 17:56 | CONS ---
CONSULTATION REPORT: DATE OF CONSULT/DICTATION: 02/05/17 PATIENT OF: Albina Daniel, ALBERT, and Dr. Nunez. HISTORY OF PRESENT ILLNESS: This is an 81-year-old woman who presented yesterday at about 9:30 in the morning when she stood up from her chair after just sitting for a few minutes of time, she felt a feeling of left leg heaviness and being off balance and the whole leg was dragging. There was no numbness. She has a tendency to fall off to the left repetitively. She has no headache, no left arm pain or weakness. No visual symptoms. No difficulty speaking. These symptoms persisted when she came in yesterday afternoon, they have completely resolved by today. Of note, she has had a stroke 3 years ago with symptoms of bilateral leg weakness. She has a history of hyperlipidemia, hypertension and smoking. She also has history of hypothyroidism, depression, anemia and gout. She is status post ovarian cystectomy, cholecystectomy, and hysterectomy. MEDICATIONS: At home include: 1. Amlodipine 5 mg daily. 2. Toprol-XL 25 mg daily. 3. Synthroid 100 mcg daily. 4. Lasix 20 mg daily. 5. Folic acid 1 mg daily. 6. Lexapro 20 mg daily. 7. COLCHICINE 0.6 mg daily as needed. 8. Benazepril 40 mg daily. 9. B12 long acting 1500 mcg daily. 10. Lipitor 20 mg daily. 11. Aspirin 325 mg daily. ALLERGIES: She is allergic to COLCHICINE and HYDROCHLOROTHIAZIDE. FAMILY HISTORY: Her mother had ovarian cancer. Father had MA. SOCIAL HISTORY: She is long time smoker. She also drinks vodka on a daily basis. She lives by herself, but family members, her children are nearby. REVIEW OF SYSTEMS: Negative in all 14 spheres other than the HPI. PHYSICAL EXAM: Temperature 97.6, pulse 62, respirations 16, blood pressure 148/ 74. She is alert and oriented with normal speech and comprehension. Cranial nerves II through XII were intact other than her palpebral fissure on the left is wider than on the right. Fundi showed sharp discs bilaterally. Motor exam revealed normal tone and strength. There was no pronator drift. She had a right shoulder injury. She walked without significant instability. She had been lying in bed for a while and was initially slightly unsteady when she got up, but that improved quickly and she attributed it to her lying down. Finger- to-nose was intact. Strength is 5/5. Sensation is intact to light touch. Reflexes were trace to 1 with downgoing toes. Chest: Clear. Cardiovascular: Regular rate and rhythm. Abdomen: Soft with positive bowel sounds. DIAGNOSTIC STUDIES/LAB DATA: I reviewed her MRI scan and agree with reported diffuse right periventricular and subcortical white matter disease, consistent with chronic small vessel ischemic disease, but no significant acute stroke. Her MRA of head and neck showed no significant carotid stenosis and no intracranial vascular pathology. Her CBC showed white count of 6.1, hematocrit of 35, platelets of 191,000. Normal INR. Chemistry: Potassium of 3.3, troponin 0.07, calcium 8.4, hemoglobin A1c 6.2, BUN 26, creatinine 1.27, LDL was 108. Normal B12 and TSH. Her echo showed no PFO and no source of clot. There was some left ventricular hypertrophy. IMPRESSION: I discussed with the patient that most likely she had a transient ischemic attack in somebody who has multiple risk factors for stroke and transient ischemic attack including hypertension, hyperlipidemia, and smoking. I discussed that she needs to quit smoking in order to most effectively reduce her risk factors and she is understanding of this. She needs her statins adjusted to try to bring her LDL to down below 70, and she has been switched to Plavix. I discussed with ther that overall, I think that this is most likely transient ischemic attack, it is hard to prove that at this point. Thank you for sharing her case. [id number]/[facility] #: [id number] CEFERINO
--- NOTE | 2017-02-06 13:19 | DS ---
CC: Yomaira Golden NP; Tacho Marc MD * DISCHARGE SUMMARY: DATE OF ADMISSION: 02/04/17 DATE OF DISCHARGE: 02/05/17 ATTENDING PHYSICIAN: Dr. Radha Hong * (as dictated by Alley Crain NP). CONSULTING PHYSICIAN: Dr. Giuliano Maldonado, Neurology. PRIMARY CARE PROVIDER: Yomaira Golden NP. PRIMARY SKEIN BLEACHER: Tacho Marc MD. PRIMARY DISCHARGE DIAGNOSES: 1. Transient ischemic attack. 2. Hyperlipidemia, uncontrolled. 3. Prediabetes, hemoglobin A1c of 6.3. 4. Urinary tract infection. SECONDARY DISCHARGE DIAGNOSES: 1. Tobacco abuse. 2. Hyperlipidemia. 3. Hypertension. 4. Hypothyroidism. 5. Depression. 6. Anemia. 7. Gout. MEDICATIONS AT DISCHARGE: 1. Triamcinolone cream 1 application topical b.i.d. p.r.n. 2. Colchicine 0.6 mg daily p.r.n. 3. Cholecalciferol 5000 units daily. 4. Vitamin B12 1500 mcg daily. 5. Metoprolol succinate XL 25 mg daily. 6. Benazepril 40 mg daily. 7. Folic acid 1 mg daily. 8. Escitalopram 20 mg daily. 9. Amlodipine 5 mg daily. 10. Levothyroxine 100 mcg daily. 11. Furosemide 20 mg q.a.m. 12. Cefuroxime 250 mg b.i.d. x7 days. This is to treat urinary tract infection. 13. Nicotine patch 14 mg over 24 hours, 1 patch transdermal daily. 14. Clopidogrel 75 mg daily. 15. Atorvastatin 80 mg daily. This has been increased from previous dosing. 16. Aspirin 81 mg daily. HOSPITAL TESTING DURING THIS ADMISSION: 1. CT brain from 02/04/17. Impression: No acute intracranial pathology. Chronic small vessel ischemic changes. 2. MRI of the brain from 02/04/17. Impression: Elevated T2/FLAIR signal in the periventricular and subcortical white matter, nonspecific, but most suggestive of chronic small vessel ischemic changes. No restricted diffusion to suggest acute infarct. 3. Head and neck MRA: Impression: No aneurysm, vascular malformation, occlusion, or stenosis of the visualized intracranial circulation. No internal carotid artery stenosis by NASCET criteria. 4. Transthoracic echocardiogram, conclusion: Mild to moderate concentric left ventricular hypertrophy and small LV chamber diameter. Global left ventricular wall motion and contractibility are within normal limits. The estimated ejection fraction is 60% to 65%. Abnormal left ventricular diastolic filling is observed, consistent with impaired relaxation. The right ventricular wall thickness is mildly increased and systolic function is normal. No patent foramen ovale demonstrated with color Doppler and agitated contrast. There is a trace of aortic regurgitation. There is a trace of mitral regurgitation. There is trace tricuspid regurgitation. Compared with prior echo of 07/14/12, global LVH and small chamber diameter are new, ventricular and valvular function are stable. HOSPITAL COURSE OF STAY: For full details, please refer to the H and P provided by Chaparro Khalil NP, on 02/04/17. In summary, Ms. Garcia is an 81-year -old female with history concerning for elevated hemoglobin A1c, previous CVA, hyperlipidemia, hypertension and continued tobacco use. The patient presented to the ER with concern for left leg heaviness and feeling off balance. This occurred around 9:30 in the morning on 02/04/17 after she stood up from her chair, she reports that her whole leg was dragging. She denies any numbness to the leg. The patient had no other symptoms of headache, difficulty with speech , left arm pain or weakness, or visual symptoms. The patient was noted; however , to be falling to her left. With these symptoms, there was concern for acute CVA. The patient was started on Plavix in addition to the aspirin that she already currently takes. She was monitored overnight and her symptoms did resolve. She was seen in consultation by Physical Therapy who admits the patient is at baseline functional status with no issues for Physical Therapy to address. In terms of her neurological workup, her radiographic films were negative; however, with her symptoms, this was most concerning for TIA. The patient was seen in consultation with Neurology who also expresses concerns. The patient does have multiple cardiovascular risk factors including hypertension, hyperlipidemia which is not well controlled and now with an elevated hemoglobin A1c. The patient's triglycerides were noted to be at 248. Her cholesterol is 194, LDL is 108 and HDL is 36.6. We did increase her atorvastatin and she will be continued on aspirin and Plavix. We also did have the patient speak with the perinatal educator if she was referred to [facility] for further education for her mildly elevated hemoglobin A1c. The patient does admit to eating things such as donuts and high-carb meals as they are easy for her to . We did discuss how she could improve these and further education was provided by the nursing staff. Additionally, I did have a very candid discussion with her about her smoking and her risk factors and she does state that she feels she should at least try to stop smoking and agreed to try nicotine patches, which I did prescribe for her. The patient was encouraged to follow up with her PCP for any further support for smoking cessation. At the time of discharge the patient's family members were present for all of this education. The patient was at baseline functional status, is alert and oriented, and able to perform ADLs independently. Again, we did discuss smoking cessation. Per the recommendations of Neurology, the patient should be further monitored by family and we did discuss this. The patient' s family state that they will be able to stay with her for the next few days and will check on her closely in order to monitor for any return of symptoms or new neurological deficits. CONCERNS AT DISCHARGE: Ms. Garcia was discharged to home on 02/05/17 with a plan to follow up with her PCP. She also has an upcoming nephrology appointment. discharge. The patient was ordered cefuroxime for E. coli positive urine culture. She will need outpatient followup regarding this finding. DIET: Heart-healthy diet. No concentrated sweets. ACTIVITY: As tolerated. CONDITION: Improved, stable. DISPOSITION: To home. TIME SPENT: Time spent on this discharge was approximately 50 minutes. Again, this is only a brief summary of the patient's hospital course of stay. For full details, please refer to the full medical record. If you have any further questions or need further assistance, please feel free to contact me at . ALLEY CRAIN, ALBERT [id number]/[facility] #: [id number] CEFERINO
== END 2017-02-05 18:43 | disposition home or self-care (01) | DRG 69 ==
LOC: ED 15:15 → MEDTELE 17:25
PROVIDERS: ADMIT Hospitalist; ATTEND Hospitalist
DX: G45.9 Transient cerebral ischemic attack, unspecified (principal); D64.9 Anemia, unspecified; N39.0 Urinary tract infection, site not specified; I08.3 Combined rheumatic disorders of mitral, aortic and tricuspid valves; I10 Essential (primary) hypertension; Z86.73 Personal history of transient ischemic attack (TIA), and cerebral infarction without residual deficits; Z88.8 Allergy status to other drugs, medicaments and biological substances; E78.00 Pure hypercholesterolemia, unspecified; K21.9 Gastro-esophageal reflux disease without esophagitis; Z90.49 Acquired absence of other specified parts of digestive tract; M10.9 Gout, unspecified; M81.0 Age-related osteoporosis without current pathological fracture; M16.12 Unilateral primary osteoarthritis, left hip; F32.9 Major depressive disorder, single episode, unspecified; Z82.49 Family history of ischemic heart disease and other diseases of the circulatory system; F17.210 Nicotine dependence, cigarettes, uncomplicated; E03.9 Hypothyroidism, unspecified; Z80.41 Family history of malignant neoplasm of ovary; Z72.89 Other problems related to lifestyle; E78.5 Hyperlipidemia, unspecified; B96.20 Unspecified Escherichia coli [E. coli] as the cause of diseases classified elsewhere; R73.03 Prediabetes; Z79.82 Long term (current) use of aspirin; Z79.02 Long term (current) use of antithrombotics/antiplatelets
CPT/HCPCS: 36415; 70450; 70544; 70547; 70551; 80048; 80053; 80061; 80320; 81003; 81015; 82607; 83036; 83605; 83735; 84443; 84484; 85025; 85610; 87077; 87086; 87186; 93005; 93306; A9270-GY; G0480; J0696; J1644